=== PATIENT | female | born 1990 | race Caucasian/White ===

== ENCOUNTER 2018-05-01 10:18 | Emergency (ER) | payer BC, OTHER ==
[2018-05-01] MEDS ORDERED: ONDANSETRON 4 MG/2 ML VIAL ONE (11:23)
[2018-05-01] MEDS ORDERED: NA CHLORIDE 0.9% 1,000 ML ONE (11:23)
[2018-05-01 12:01] LABS: Absolute Lymphocytes (CBC) 0.3 K/uL (0.7-4.9); Absolute Monocytes 0.3 K/uL (0.1-1.3); Absolute Neutrophil 7.6 K/uL (1.8-8.0); Basophils % 0.2 % (0-1.3); Eosinophils % 0.1 % (0-4.4); Hematocrit 44.7 % (36.0-45.0); Lymphocytes % 3.6 % (15.3-44.8); MPV 8.9 fL (7.6-11.3); Monocytes % 3.2 % (3.3-12.3); RBC Red Blood Cell Count 4.99 M/uL (3.86-4.86)
[2018-05-01 12:18] LABS: Albumin 4.7 g/dL (3.4-5.0); Bilirubin Direct 0.1 mg/dL (0-0.2); Bilirubin Total 0.5 mg/dL (0.2-1.0); Potassium 3.7 mmol/L (3.5-5.1); Protein, Total 8.5 g/dL (6.4-8.2)
[2018-05-01 12:22] LABS: Urine Blood TRACE (NEG); Urine Glucose NEGATIVE (NEG); Urine Protein TRACE (NEG); Urine Specific Gravity >1.030 (1.005-1.030); Urine pH 5.5 (5.0-7.0)
[2018-05-01 12:28] LABS: Urine Bacteria 20-50 /HPF (<20); Urine Culture Reflex Order REFLEXED; Urine RBC <5 /HPF (NONE SEEN)
[2018-05-01 12:53] LABS: Blood Morphology Comment NOT SEEN (NOT SEEN); Platelet Estimate ADEQ
[2018-05-01] MEDS ORDERED: CEFTRIAXONE/SWI 1gm 1 GM/10 ML SYR ONE (14:08)
--- NOTE | 2018-05-01 14:31 | EDPHYS ---
Physician Documentation [facility] Name: Tana Melendez Age: 27 yrs Sex: Female : 1990 Arrival Date: 05/01/2018 Time: 10:23 Bed 25 Private MD: ED Physician Abdiel Mccabe HPI: 05/01 13:37 This 27 yrs old Female presents to ER via Ambulatory with complaints of gs Vomiting/Diarrhea, Back Pain. 14:13 Onset: The symptoms/episode began/occurred yesterday. Possible causes: unknown. The gs symptoms are aggravated by nothing. The symptoms are alleviated by nothing. Associated signs and symptoms: Pertinent negatives: dysuria, fever, GI bleeding. Severity of symptoms: At their worst the symptoms were severe in the emergency department the symptoms have improved markedly. The patient has experienced similar episodes in the past, a few times. The patient has not recently seen a physician. 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 - Social history:: Smoking status: Patient/guardian denies using tobacco. - Ebola Screening: : No symptoms or risks identified at this time. ROS: 14:13 All other systems are negative. gs Exam: 14:13 Head/Face: Normocephalic, atraumatic. Eyes: Pupils equal round and reactive to light, gs extra-ocular motions intact. Lids and lashes normal. Conjunctiva and sclera are non-icteric and not injected. Cornea within normal limits. Periorbital areas with no swelling, redness, or edema. ENT: Nares patent. No nasal discharge, no septal abnormalities noted. Tympanic membranes are normal and external auditory canals are clear. Oropharynx with no redness, swelling, or masses, exudates, or evidence of obstruction, uvula midline. Mucous membranes moist. 14:13 Neck: Trachea midline, no thyromegaly or masses palpated, and no cervical lymphadenopathy. Supple, full range of motion without nuchal rigidity, or vertebral point tenderness. No Meningismus. Chest/axilla: Normal chest wall appearance and motion. Nontender with no deformity. No lesions are appreciated. Respiratory: Lungs have equal breath sounds bilaterally, clear to auscultation and percussion. No rales, rhonchi or wheezes noted. No increased work of breathing, no retractions or nasal flaring. Back: No spinal tenderness. No costovertebral tenderness. Full range of motion. Skin: Warm, dry with normal turgor. Normal color with no rashes, no lesions, and no evidence of cellulitis. MS/ Extremity: Pulses equal, no cyanosis. Neurovascular intact. Full, normal range of motion. Neuro: Awake and alert, GCS 15, oriented to person, place, time, and situation. Cranial nerves II-XII grossly intact. Motor strength 5/5 in all extremities. Sensory grossly intact. Cerebellar exam normal. Normal gait. 14:13 Constitutional: The patient appears alert, awake. 14:13 Constitutional: The patient appears uncomfortable. 14:13 Cardiovascular: Rate: tachycardic, Rhythm: regular, Pulses: no pulse deficits are appreciated. 14:13 Abdomen/GI: Inspection: abdomen appears normal, Palpation: abdomen is soft and non-tender, in all quadrants. Vital Signs: 10:31 BP 123 / 91; Pulse 105; Resp 16; Temp 97.2(TE); Pulse Ox 99% on R/A; Pain 2/10; hb 12:00 BP 122 / 70; Pulse 76; Resp 16; Temp 98.0; Pulse Ox 99% on R/A; Pain 3/10; ls4 14:43 BP 117 / 70; Pulse 82; Resp 18; Temp 98.1(O); Pain 2/10; ls4 MDM: 10:56 Patient medically screened. 14:13 Differential diagnosis: Nonspecific abd pain, pancreatitis, viral gastroenteritis, gs gastroenteritis, uti. Data reviewed: vital signs, nurses notes. Data reviewed: lab test result(s). Counseling: I had a detailed discussion with the patient and/or guardian regarding: the historical points, exam findings, and any diagnostic results supporting the discharge/admit diagnosis, the need for outpatient follow up. Response to treatment: the patient's symptoms have markedly improved after treatment, the patient's condition has returned to base line, and as a result, I will discharge patient. 05/01 11:05 Order name: Basic Metabolic Panel; Complete Time: 13:35 05/01 11:05 Order name: CBC with Diff; Complete Time: 13:35 05/01 11:05 Order name: Hepatic Function; Complete Time: 13:35 05/01 11:05 Order name: Lipase; Complete Time: 13:35 05/01 11:05 Order name: Flu; Complete Time: 13:35 05/01 11:05 Order name: Strep; Complete Time: 13:35 05/01 11:05 Order name: Urine Microscopic Only; Complete Time: 13:35 05/01 12:05 Order name: Urine Dipstick--Ancillary (enter results); Complete Time: 13:35 05/01 12:05 Order name: Urine --Ancillary (enter results); Complete Time: 13:35 05/01 12:13 Order name: Throat Culture [facility] 05/01 12:30 Order name: Urine Culture [facility] 05/01 12:54 Order name: Manual Differential; Complete Time: 13:35 [facility] 05/01 11:05 Order name: IV Saline Lock; Complete Time: 11:36 05/01 11:05 Order name: Labs collected and sent; Complete Time: 11:36 05/01 11:05 Order name: Urine Dipstick-Ancillary (obtain specimen); Complete Time: 11:35 05/01 11:08 Order name: Urine Test (obtain specimen); Complete Time: 11:35 Administered Medications: 11:20 Drug: NS 0.9% 1000 ml Route: IV; Rate: 1 bolus; Site: left antecubital; ls4 12:30 Follow up: IV Status: Completed infusion; IV Intake: 1000ml ls4 11:20 Drug: Zofran 4 mg Route: IVP; Site: left antecubital; ls4 11:50 Follow up: Response: No adverse reaction; Marked relief of symptoms ls4 14:00 Drug: Rocephin - (cefTRIAXone) 1 grams Route: IVPB; Infused Over: 30 mins; Site: left ls4 antecubital; 14:10 Follow up: IV Status: Completed infusion; IV Intake: 10ml ls4 14:36 Follow up: Response: No adverse reaction ls4 Disposition: 05/01/18 14:30 Discharged to Home. Impression: Vomiting, Diarrhea, unspecified, Cystitis. - Condition is Stable. - Discharge Instructions: Nausea and Vomiting, Adult. - Prescriptions for Keflex 500 mg Oral Capsule - take 1 capsule by ORAL route every 12 hours for 10 days; 14 capsule. Zofran 4 mg Oral Tablet - take 1 tablet by ORAL route every 12 hours As needed; 10 tablet. - Medication Reconciliation Form, Thank You Letter, Antibiotic Education, Prescription Opioid Use, Work release form form. - Follow up: Private Physician; When: 1 - 2 days; Reason: Re-evaluation by your physician. Signatures: Dispatcher [employer] EDMS Emilee Bueno RN RN Abdiel Mccabe MD MD Michelle Mcintyre RN RN ls4 Corrections: (The following items were deleted from the chart) 14:32 14:30 05/01/2018 14:30 Discharged to Home. Impression: Vomiting; Diarrhea, unspecified. Condition is Stable. Forms are Medication Reconciliation Form, Thank You Letter, Antibiotic Education, Prescription Opioid Use. Follow up: Private Physician; When: 1 - 2 days; Reason: Re-evaluation by your physician. 14:46 14:32 05/01/2018 14:30 Discharged to Home. Impression: Vomiting; Diarrhea, unspecified; ls4 Cystitis. Condition is Stable. Discharge Instructions: Nausea and Vomiting, Adult. Prescriptions for Keflex 500 mg Oral Capsule - take 1 capsule by ORAL route every 12 hours for 10 days; 20 capsule, Zofran 4 mg Oral Tablet - take 1 tablet by ORAL route every 12 hours As needed; 6 tablet. and Forms are Medication Reconciliation Form, Thank You Letter, Antibiotic Education, Prescription Opioid Use. Follow up: Private Physician; When: 1 - 2 days; Reason: Re-evaluation by your physician.
--- NOTE | 2018-05-01 14:31 | ER ---
Nurse's Notes [facility] Name: Tana Melendez Age: 27 yrs Sex: Female : 1990 Arrival Date: 05/01/2018 Time: 10:23 Bed 25 Private MD: Diagnosis: Vomiting;Diarrhea, unspecified;Cystitis Presentation: 05/01 10:32 Presenting complaint: Headache, back pain, upper abdominal pain, and N/V/D x 2 days. hb Transition of care: patient was not received from another setting of care. Onset of symptoms was April 30, 2018. Risk Assessment: Do you want to hurt yourself or someone else? Patient reports no desire to harm self or others. Care prior to arrival: None. 10:32 Method Of Arrival: Ambulatory hb 10:32 Acuity: ROJELIO 3 hb 10:37 Initial Sepsis Screen: Does the patient meet any 2 criteria? No. Patient's initial ls4 sepsis screen is negative. Does the patient have a suspected source of infection? No. Patient's initial sepsis screen is negative. Triage Assessment: 10:36 General: Appears in no apparent distress. Behavior is calm, cooperative. GI: Reports ls4 nausea, vomiting. 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 - Social history:: Smoking status: Patient/guardian denies using tobacco. - Ebola Screening: : No symptoms or risks identified at this time. Screenin:36 Abuse screen: Denies threats or abuse. Denies injuries from another. Nutritional ls4 screening: No deficits noted. Tuberculosis screening: No symptoms or risk factors identified. Fall Risk None identified. Assessment: 11:03 General: Appears in no apparent distress. Pain: Denies pain. GI: No deficits noted. GI: ls4 Abdomen is non-distended. Derm: Skin is pink, warm \T\ dry. Vital Signs: 10:31 BP 123 / 91; Pulse 105; Resp 16; Temp 97.2(TE); Pulse Ox 99% on R/A; Pain 2/10; hb 12:00 BP 122 / 70; Pulse 76; Resp 16; Temp 98.0; Pulse Ox 99% on R/A; Pain 3/10; ls4 14:43 BP 117 / 70; Pulse 82; Resp 18; Temp 98.1(O); Pain 2/10; ls4 ED Course: 10:23 Patient arrived in ED. as 10:30 Abdiel Mccabe MD is Attending Physician. 10:31 Arm band placed on. hb 10:33 Triage completed. hb 10:35 Michelle Mcintyre, CARI is Primary Nurse. ls4 10:36 Patient has correct armband on for positive identification. Bed in low position. Call ls4 light in reach. Side rails up X 1. 10:37 No provider procedures requiring assistance completed. ls4 12:29 Throat Culture Sent. ls4 14:46 IV discontinued, intact, bleeding controlled, No redness/swelling at site. Pressure ls4 dressing applied. Administered Medications: 11:20 Drug: NS 0.9% 1000 ml Route: IV; Rate: 1 bolus; Site: left antecubital; ls4 12:30 Follow up: IV Status: Completed infusion; IV Intake: 1000ml ls4 11:20 Drug: Zofran 4 mg Route: IVP; Site: left antecubital; ls4 11:50 Follow up: Response: No adverse reaction; Marked relief of symptoms ls4 14:00 Drug: Rocephin - (cefTRIAXone) 1 grams Route: IVPB; Infused Over: 30 mins; Site: left ls4 antecubital; 14:10 Follow up: IV Status: Completed infusion; IV Intake: 10ml ls4 14:36 Follow up: Response: No adverse reaction ls4 Intake: 12:30 IV: 1000ml; Total: 1000ml. ls4 14:10 IV: 10ml; Total: 1010ml. ls4 Outcome: 14:30 Discharge ordered by . 14:44 Discharged to home ambulatory. ls4 14:44 Condition: stable 14:44 Discharge instructions given to patient, family, Instructed on discharge instructions, follow up and referral plans. medication usage, safety practices, Demonstrated understanding of instructions, follow-up care, medications. 14:46 Patient left the ED. ls4 Signatures: Leticia Monge Heather, RN RN Abdiel Mccabe MD MD Michelle Mcintyre, RN RN ls4 Corrections: (The following items were deleted from the chart) 10:33 10:32 Acuity: ROJELIO 4 hb hb
== END 2018-05-01 14:46 | disposition home or self-care (01) ==
LOC: ER 10:18
DX: N30.90 Cystitis, unspecified without hematuria (principal); R19.7 Diarrhea, unspecified; R11.10 Vomiting, unspecified
CPT/HCPCS: 36415; 80048; 80076; 81003; 81015; 81025; 83690; 85025; 87070; 87081; 87086; 87088; 87804; 96361; 96374; 96375; 99283; J0696; J2405; J7030